=== PATIENT | female | born 1950 | race Caucasian/White ===

== ENCOUNTER 2017-06-16 13:56 | Outpatient (CLI) | payer OTHER | END 2017-06-16 15:57 | disposition home or self-care (01) | LOC: HPC 13:56 | DX: R10.9 Unspecified abdominal pain (principal); G89.29 Other chronic pain; R11.0 Nausea; I10 Essential (primary) hypertension; K85.10 Biliary acute pancreatitis without necrosis or infection | CPT/HCPCS: Z7500 ==